=== PATIENT | female | born 1965 | race Caucasian/White ===

== ENCOUNTER 2023-09-21 14:53 | Emergency (ER) | payer OTHER, SELFPAY ==
[2023-09-21] VITALS (7 sets, daily range): BP systolic 134–180; BP diastolic 71–102
[2023-09-21 16:03] LABS: % Basophils 0.7 % (0-2); % Eosinophils 4.7 % (0-6); % Immature Granulocytes 0.3 % (0-0.5); % Lymphocytes 28.8 % (20.5-51.1); % Neutrophils 56.5 % (42.2-75.2); Absolute Basophils 0.1 10^3/uL (0-0.2); Absolute Eosinophils 0.3 10^3/uL (0-0.7); Absolute Lymphocytes 2.1 10^3/uL (1.2-3.4); Absolute Monocytes 0.7 10^3/uL (0.1-0.6); Absolute Neutrophils 4.1 10^3/uL (1.4-6.5); Hematocrit 39.1 % (37.0-47.0); Mean Corp Hgb Conc. 35.8 g/dL (33.0-37.0); Mean Corpuscular Hgb 34.6 pg (27.0-31.0); Mean Corpuscular Volume 96.5 fL (81.0-99.0); Mean Platelet Volume 10.6 fL (7.4-10.4); Nucleated Red Blood Cells % 0 %; Platelet Count 239 10^3/uL (130-400); Red Blood Cell Count 4.05 10^6/uL (4.20-5.40); Red Cell Dist. Width 12.5 % (11.5-14.5); White Blood Cell Count 7.2 10^3/uL (4.8-10.8)
[2023-09-21 16:21] LABS: Troponin I < 0.012 ng/ml
[2023-09-21 16:26] LABS: ALT (SGPT) 43 U/L (0-35); AST (SGOT) 42 U/L (14-36); Albumin 4.4 g/dl (3.5-5.0); Alkaline Phosphatase 61 U/L (38-126); Blood Urea Nitrogen 17 mg/dl (7-17); Calcium 10.1 mg/dl (8.4-10.2); Carbon Dioxide 26 mmol/L (22-30); Chloride 103 mmol/L (98-107); Glucose 124 mg/dl (70-99); Potassium 4.2 mmol/L (3.5-5.1); Sodium 135 mmol/L (135-145); Total Bilirubin 0.5 mg/dl (0.2-1.3); eGFR > 60.00
--- NOTE | 2023-09-21 17:42 | ED.GENMED ---
History of Present Illness
General
Chief Complaint: Chest Pain
Time Seen by Provider: 09/21/23 15:17
History of Present Illness
History of Present Illness:
58-year-old female with history of hypertension and hyperlipidemia presents to the emergency department for evaluation of central chest tightness that began approximately 1 to 2 hours ago. She states that she was able to exert herself throughout
the day with chores and yard work and felt fine but when taking a nap shortly thereafter the symptoms began. She describes a vague tightness at this point, nonpleuritic and nonpositional. Denies any fevers or chills. No history of similar
symptoms. She does note heightened anxiety due to the of multiple young family members recently due to presumed Brugada syndrome.
Past History
Past History
ED Past Medical History: GERD and Psychiatric (Anxiety); Negative Fibromyalgia, HTN, Hypercholesterolemia, IDDM, NIDDM, [place] or Renal failure
ED Past Surgical History: Negative Cardiac or Cholecystectomy
Social History
Tobacco: Non-smoker
Alcohol: None
Drug: None
Personal:
Living: with family
Employment: Employed
Family History
Family History: Hypertension
Review of Systems
Review of Systems
Allergies reviewed?: Yes
All Other Systems: ROS reviewed and negative except as documented in HPI and ROS
Phy Exam
Physical Exam
Physical Exam:
GEN: Well appearing, NAD, WDWN
HEENT: Oral mucosa moist, no scleral icterus
Cardiac: Regular rate and rhythm, no murmurs
Lung: No respiratory distress, no tachypnea, clear to auscultation bilaterally
MSK: No gross deformity or injuries
Skin: Good color, no pallor or jaundice, no rashes
Neuro: AO x3, moves all extremities freely
Psych: Calm, cooperative
Scores
Heart Score for Chest Pain Patients
STEMI patient?: Not applicable
Course
Orders/Labs/Results
Orders:
Orders
09/21/23 14:55
Electrocardiogram (*1) Urgent
Reason for Study: Chest Pain
EKG- Treatment ONCE
09/21/23 15:41
CR Chest - 2 Views Urgent
Comment:
Reason For Exam: chest tightness
09/21/23 15:48
Complete Blood Count/With Diff Urgent
Comprehensive Metabolic Panel Urgent
Troponin I Urgent
09/21/23 18:56
Troponin I Routine
Abnormal Lab Results
09/21/23
15:48
RBC 4.05 L 10^6/uL
(4.20-5.40)
MCH 34.6 H pg
(27.0-31.0)
MPV 10.6 H fL
(7.4-10.4)
Absolute Monos (auto) 0.7 H 10^3/uL
(0.1-0.6)
Glucose 124 H mg/dl
(70-99)
AST 42 H U/L
(14-36)
ALT 43 H U/L
(0-35)
09/21/23 15:48
09/21/23 15:48
Vital Signs
Initial and Last Documented VS:
Initial Vital Signs
Temp Pulse Resp BP Pulse Ox
98.2 F 72 16 180/102 100
09/21/23 15:06 09/21/23 15:06 09/21/23 15:06 09/21/23 15:06 09/21/23 15:06
Last Documented Vital Signs
Temp Pulse Resp BP Pulse Ox
98.2 F 68 18 142/77 98
09/21/23 15:06 09/21/23 19:30 09/21/23 19:30 09/21/23 19:00 09/21/23 19:30
MDM/Problems Addressed
MDM/Problems Addressed:
58-year-old female presents with chest tightness. Initial EKG is reassuring and troponin is negative. Given the sudden nature and Relative short duration we will obtain repeat troponins. Should repeat troponin negative do not have a high
suspicion for ACS thus feel she is appropriate for outpatient management through the chest pain hotline.
*Critical Care Note
Total Time (30-74mins, 75-104mins- exclusive of procedures): Not Applicable
ED Attending Note
-
Portions of this chart may have been created with voice recognition software.� Occasional wrong word or��sound alike� substitutions may have occurred due to the inherent limitations of voice recognition software.
Discharge Plan
Departure
Patient Disposition: Home (Routine Discharge)
Date of Disposition: 09/21/23
Time of Disposition: 19:37
Patient with high blood pressure during this ER visit?: Yes
Discharge Problem:
Chest pain
Instructions: Chest Pain CBC Follow Up, BLOOD PRESSURE
Prescriptions:
No Action
lisinopril 10 MG tablet
10 mg PO DAILY
hydrochlorothiazide 25 MG tablet
25 mg PO DAILY
Simvastatin
1 tab PO QPM
alprazolam 0.25 MG tablet
0.25 mg PO PRN PRN (Reason: anxiety)
ondansetron 4 MG tablet,disintegrating
4 mg PO TIDPRN PRN (Reason: nausea/vomiting) Qty: 10 0RF
Referrals:
Ceasar Craft MD [Active] -
Narendra Peter MD [Family Provider] -
Interventions
Interventions:
*Risk Screen - Suicide Last Done: 09/21/23 15:06
*General Assessment Last Done: 09/21/23 15:06
*Neglect/Abuse Screening Last Done: 09/21/23 15:06
ED- Fall Risk Assessment Last Done: 09/21/23 19:47
*ED COVID-19 Vaccine History Last Done: 09/21/23 15:06
*Nursing Disposition Last Done: 09/21/23 19:47
ED- Cardiac Assessment Last Done: 09/21/23 15:26
Discharge Date and Time
Discharge Date/Time: 09/21/23 19:47
Print Language: CHADIAN
[2023-09-21 19:37] LABS: Troponin I < 0.012 ng/ml
== END 2023-09-21 19:47 | disposition home or self-care (01) ==
LOC: EMR 14:53
PROVIDERS: Physician Assistant; EMERGENCY PHYSICIAN Emergency Medicine; FAMILY PHYSICIAN Internal Medicine
DX: R07.89 Other chest pain (principal); I10 Essential (primary) hypertension; E78.00 Pure hypercholesterolemia, unspecified
CPT/HCPCS: 99285; 71046; 80053; 84484; 85025; 93005

== ENCOUNTER → 2023-11-05 08:20 | Outpatient (REF) | payer OTHER, SELFPAY | LOC: HWRCS 08:20 | PROVIDERS: ATTENDING PHYSICIAN Student in an Organized Health Care Education/Training Program; FAMILY PHYSICIAN Internal Medicine | DX: R00.2 Palpitations (principal); Z82.41 Family history of sudden cardiac death | CPT/HCPCS: 93017; 93306 ==

== ENCOUNTER → 2023-11-22 13:27 | Outpatient (REF) | payer OTHER, SELFPAY | LOC: WDC 13:27 | PROVIDERS: ATTENDING PHYSICIAN Internal Medicine | DX: Z12.31 Encounter for screening mammogram for malignant neoplasm of breast (principal) | CPT/HCPCS: 77063; 77067 ==

== ENCOUNTER → 2023-12-19 12:51 | Outpatient (REF) | payer OTHER, SELFPAY | LOC: WDC 12:51 | PROVIDERS: ATTENDING PHYSICIAN Internal Medicine | DX: R92.30 Dense breasts, unspecified (principal) | CPT/HCPCS: 76641 ==

== ENCOUNTER → 2024-04-12 16:42 | Outpatient (REF) | payer OTHER, SELFPAY | LOC: HWRAD 16:42 | PROVIDERS: ATTENDING PHYSICIAN Internal Medicine | DX: M54.9 Dorsalgia, unspecified (principal) | CPT/HCPCS: 71101; 72070 ==